=== PATIENT | male | born 1985 ===

== ENCOUNTER 2021-01-12 14:58 | Emergency (ER) | payer SELFPAY ==
--- NOTE | 2021-01-12 15:27 | Emergency Department Report ---
ED Psych HPI - General Chief Complaint: Psych Stated Complaint: SUICIDAL THOUGHTS Time Seen by Provider: 01/12/21 15:17 Source: patient Mode of arrival: Ambulatory - History of Present Illness Initial Comments: Patient is 35 years old male unknown to this facility. Patient denied any medical or psychiatric history. Patient presented to the ER by himself according to his report for evaluation of suicidal thoughts. Patient stated that he had a brief thoughts of killing himself by stabbing himself with a knife however now he is not feeling that anymore. He stated that he has a lot of things to live for. Patient denied any history of depression. He also denied any suicidal ideation or attempts before. Patient denied any visual or auditory hallucination. MD Complaint: suicidal ideation -: This morning Associated Psychiatric Symptoms: suicidal ideation History of same: No Associated Symptoms: denies other symptoms Treatments Prior to Arrival: none If Self Harm: admits thoughts of, has plan, self-inflicted trauma - Related Data Allergies Allergy/AdvReac Type Severity Reaction Status Date / Time No Known Allergies Allergy Unverified 01/12/21 14:59 ED Review of Systems ROS: Stated complaint: SUICIDAL THOUGHTS Other details as noted in HPI Comment: All other systems reviewed and negative Constitutional: denies: chills, fever Respiratory: denies: orthopnea, shortness of breath Cardiovascular: denies: chest pain, palpitations Gastrointestinal: denies: abdominal pain, nausea, vomiting Musculoskeletal: denies: back pain Neurological: denies: headache, weakness, numbness, paresthesias, confusion ED Past Medical Hx - Past Medical History Hx Psychiatric Treatment: Yes (BIPOLAR SCHIZOPHERNIC) - Surgical History Past Surgical History?: No - Social History Smoking Status: Never Smoker Substance Use Type: None ED Physical Exam - General Limitations: No Limitations General appearance: alert, in no apparent distress - Head Head exam: Present: atraumatic, normocephalic, normal inspection - Eye Eye exam: Present: normal appearance, PERRL - ENT ENT exam: Present: normal exam, normal orophraynx, mucous membranes moist - Neck Neck exam: Present: normal inspection, full ROM. Absent: tenderness, meningismus - Respiratory Respiratory exam: Present: normal lung sounds bilaterally - Cardiovascular Cardiovascular Exam: Present: regular rate, normal rhythm, normal heart sounds - GI/Abdominal GI/Abdominal exam: Present: soft, normal bowel sounds. Absent: distended, tenderness, guarding, rebound, rigid, organomegaly, mass, bruit, pulsatile mass, hernia - Extremities Exam Extremities exam: Present: normal inspection, full ROM, normal capillary refill. Absent: tenderness - Back Exam Back exam: Present: normal inspection, full ROM. Absent: CVA tenderness (R), CVA tenderness (L) - Neurological Exam Neurological exam: Present: alert, oriented X3, CN II-XII intact, normal gait, reflexes normal. Absent: motor sensory deficit - Psychiatric Psychiatric exam: Present: flat affect. Absent: agitated, homicidal ideation, suicidal ideation - Skin Skin exam: Present: warm, intact, normal color ED Course Vital Signs 01/12/21 01/12/21 01/12/21 14:59 15:13 19:39 Temperature 99 F 98.0 F 97.8 F Pulse Rate 105 H 90 64 Respiratory 18 20 18 Rate Blood Pressure 146/101 Blood Pressure 146/101 128/86 [Left] O2 Sat by Pulse 99 98 100 Oximetry 01/12/21 01/13/21 23:00 07:25 Temperature 98.0 F Pulse Rate 89 Respiratory 18 20 Rate Blood Pressure Blood Pressure 148/100 [Left] O2 Sat by Pulse 98 98 Oximetry ED Medical Decision Making - Lab Data Result diagrams: 01/12/21 15:15 01/12/21 15:15 - Medical Decision Making Patient is 35 years old male unknown to this facility. Patient denied any medical or psychiatric history. Patient presented to the ER by himself according to his report for evaluation of suicidal thoughts. Patient stated that he had a brief thoughts of killing himself by stabbing himself with a knife however now he is not feeling that anymore. He stated that he has a lot of things to live for. Patient denied any history of depression. He also denied any suicidal ideation or attempts before. Patient denied any visual or auditory hallucination. Labs reviewed and is unremarkable. Patient has been evaluated by our psychiatric team and advised patient to be discharged and follow-up as an outpatient. Patient currently denying any suicidal or homicidal ideation. He also denied any visual or auditory hallucination. Patient is medically and psychiatrically stable for discharge. Critical care attestation.: If time is entered above; I have spent that time in minutes in the direct care of this critically ill patient, excluding procedure time. ED Disposition Clinical Impression: Suicidal ideation Disposition: HOME / SELF CARE / HOMELESS Is pt being admited?: No Condition: Stable Instructions: Suicidal Feelings: How to Help Yourself Additional Instructions: Professional and Agency Contacts To help Resolve Crises (11/12) CT Crisis Line: Suicide Prevention Line: Crisis Text Line: Text START to 693604 Emergency: 911 Outpatient COMMUNITY Behavioral Health Resources: [facility]: [facility] [address] [place], [place] [address] [place]: [facility] [address] [place] [address] Sunday thru Sunday - 8am - 5pm Call to schedule an assessment for mental health and substance abuse programs [place]: [facility] Address: [address] [place] [address] Sunday thru Sunday- 7am-2pm [facility] Address: [address] [place] [address] Sunday thru Sunday: 8:30AM-5PM Referrals: PRIMARY CAREMD [Primary Care Provider] - 3-5 Days
[2021-01-12 15:45] LABS: Basophils % (Auto) 0.4 % (0.0-1.8); Eosinophils # (Auto) 0.2 K/mm3 (0.0-0.4); Eosinophils % (Auto) 2.5 % (0.0-4.3); Hemoglobin 15.2 gm/dl (11.8-15.2); Lymphocytes # (Auto) 1.8 K/mm3 (1.2-5.4); Lymphocytes % (Auto) 25.2 % (13.4-35.0); Mean Corpuscular HGB Conc 35 % (32-34); Mean Corpuscular Volume 99 fl (84-94); Monocytes # (Auto) 0.6 K/mm3 (0.0-0.8); Monocytes % (Auto) 7.8 % (0.0-7.3); Platelet Count 385 K/mm3 (140-440); Red Blood Count 4.42 M/mm3 (3.65-5.03); Red Cell Distribution Width 13.5 % (13.2-15.2)
[2021-01-12 15:52] LABS: Amphetamine Screen,Urine Negative; Benzodiazepines Screen,Urine Negative; Cocaine Screen,Urine Negative; Methadone Screen,Urine Negative; Opiate Screen,Urine Negative
[2021-01-12 15:56] LABS: Bilirubin,Urine NEG (Negative); Blood,Urine NEG (Negative); Color,Urine Yellow (Yellow); Mucus,Urine FEW /HPF; Protein,Urine <15 mg/dL mg/dL (Negative); Urobilinogen,Urine < 2.0 mg/dL (<2.0)
[2021-01-12 15:56] LABS: Blood Urea Nitrogen 9 mg/dL (9-20); Calcium 10.1 mg/dL (8.4-10.2); Hemolysis Index 11
[2021-01-12 15:58] LABS: BUN/Creatinine Ratio 13
[2021-01-12 16:12] LABS: Cannabinoid Screen,Urine Positive
[2021-01-13 07:26] VITALS: BP 148/100
--- NOTE | 2021-01-13 10:42 | Consultation ---
History of Present Illness - Reason for Consult Consult date: 01/13/21 Reason for consult: suicidal ideation - History of Present Psychiatric Illness Per ED Note: Patient is 35 years old male unknown to this facility. Patient denied any medical or psychiatric history. Patient presented to the ER by himself according to his report for evaluation of suicidal thoughts. Patient stated that he had a brief thoughts of killing himself by stabbing himself with a knife however now he is not feeling that anymore. He stated that he has a lot of things to live for. Patient denied any history of depression. He also denied any suicidal ideation or attempts before. Patient denied any visual or auditory hallucination. David Fink is a 35 year old male with no prior psychiatric history who presents to the ED with suicidal ideation. In my interview with the patient, he is calm. The patient reports that he lost his job yesterday and became very upset stating he wanted to kill himself. The patient denies being depressed or experiencing excessive nervousness. He denies any current suicidal ideation and denies hallucinations. PAST PSYCHIATRIC HISTORY: Diagnoses: Denies Suicide attempts or Self-harm behavior:Denies Prior psychiatric hospitalizations: Denies Substance Abuse history: Denies Previous psychiatric medications tried:Denies Outpatient treatment:Denies PAST MEDICAL HISTORY: None reported or document Family Psychiatric History: None reported or documented SOCIAL HISTORY Marital Status: Single Living Arrangements: Lives alone Employment Status: unemployed Access to guns/weapons: Denies Education:some 12th grade History of Abuse:Denies Legal History: Unknown REVIEW OF SYSTEMS Constitutional: Negative for weight loss ENT: Negative for stridor Respiratory: Negative for cough or hemoptysis All other systems reviewed and are negative MENTAL STATUS EXAMINATION General Appearance and Behavior: Age appropriate, good hygiene, wearing appropriate clothes. Cooperation: Cooperative Psychomotor Behavior: Psychomotor normal Mood:ok Affect and affective range: Congruent with stated mood Thought Process: Goal Directed Thought Content: Not Suicidal Speech: Normal volume, Regular rate and rhythm, Suicidal Ideation: Denies Homicidal Ideation: Denies Hallucinations: Denies Delusions:Denies Impulse Control: Unimpaired Insight and Judgment: Limited, poor judgment Memory: Normal Attention:Distractible Orientation: alert and oriented Assessment and Plan (1)Unspecified Mood disorder- F39 Current Visit: Yes Status: Acute Dc 1013 The patient to comply with previously prescribed medications Risks, benefits and alternatives of medications discussed with the patient, questions answered and consent obtained from patient. PSYCHOTHERAPY: Supportive psychotherapy provided MEDICAL: Per primary team DELIRIUM PRECAUTIONS: Please re-orient patient frequently, keep lights on during the day, and minimize benzodiazepines and opiates as these medications could worsen patient's confusion. PHYTOPATHOLOGY TEACHER: Defer to primary DISPOSITION: Do not recommend acute inpatient psychiatric hospitalization at this time. The patient knows that if suicidal/homicidal ideation or any endangering thoughts arise to seek for emergent assistance including but not limited to crisis hot line and emergency room. [employer] will provide patient wi th recourses. FOLLOW-UP: Will sign off. Case staffed with Dr. Larson Thank you for the consult. Please contact with any questions and/or concerns. Medications and Allergies Allergies Allergy/AdvReac Type Severity Reaction Status Date / Time No Known Allergies Allergy Unverified 01/12/21 14:59 Mental Status Exam - Vital signs Last Vital Signs Temp 98.0 F 01/13/21 07:25 Pulse 89 01/13/21 07:25 Resp 20 01/13/21 07:25 BP 148/100 01/13/21 07:25 Pulse Ox 98 01/13/21 07:25 Results Result Diagrams: 01/12/21 15:15 01/12/21 15:15 Abnormal lab results 01/12/21 01/12/21 01/12/21 Range/Units 15:15 15:15 15:15 MCV (84-94) fl MCH (28-32) pg MCHC (32-34) % [place] % (Auto) (0.0-7.3) % Creatinine 0.7 L (0.8-1.3) mg/dL Salicylates < 0.3 L (2.8-20.0) mg/dL Acetaminophen 5.0 L (10.0-30.0) ug/mL 01/12/21 Range/Units 15:15 MCV 99 H (84-94) fl MCH 34 H (28-32) pg MCHC 35 H (32-34) % [place] % (Auto) 7.8 H (0.0-7.3) % Creatinine (0.8-1.3) mg/dL Salicylates (2.8-20.0) mg/dL Acetaminophen (10.0-30.0) ug/mL All other labs normal.
== END 2021-01-13 11:30 | disposition home or self-care (01) ==
LOC: ED 14:58 → EEVIPCON 14:58 → ED 01-13 11:30
DX: R45.851 Suicidal ideations (principal); F25.0 Schizoaffective disorder, bipolar type
CPT/HCPCS: 36415; 80048; 80307; 80320; 81001; 85025; 99284; G0480